=== PATIENT | male | born 1995 | race Caucasian/White ===

== ENCOUNTER 2017-03-27 17:54 | Emergency (ER) | payer OTHER | END 2017-03-27 19:41 | disposition home or self-care (01) | LOC: E/R 19:41 | DX: A08.4 Viral intestinal infection, unspecified (principal) | CPT/HCPCS: 99284; Z7502 ==

== ENCOUNTER 2017-10-07 16:30 | Emergency (ER) | payer OTHER ==
[2017-10-07] MEDS: IBUPROFEN 600 MG TAB PO (18:44)
== END 2017-10-07 20:04 | disposition home or self-care (01) ==
LOC: FTE 16:30
DX: S89.92XA Unspecified injury of left lower leg, initial encounter (principal); W01.0XXA Fall on same level from slipping, tripping and stumbling without subsequent striking against object, initial encounter; Y92.9 Unspecified place or not applicable
CPT/HCPCS: 29505; 73564; 99283-25

== ENCOUNTER 2018-06-23 17:32 | Emergency (ER) | payer OTHER ==
[2018-06-23] MEDS: IBUPROFEN 600 MG TAB PO (18:55)
== END 2018-06-23 20:03 | disposition home or self-care (01) ==
LOC: FTE 17:32
DX: M54.2 Cervicalgia (principal); M54.5 Low back pain
CPT/HCPCS: 72040; 72100; 99283-25